=== PATIENT | male | born 1990 | race Hispanic/Latino ===

== ENCOUNTER 2019-06-30 05:27 | Emergency (ER) | payer OTHER ==
[2019-06-30] MEDS ORDERED: LIDOCAINE 5% TOPICAL PATCH TP ONE (05:59)
[2019-06-30] MEDS ORDERED: KETOROLAC TROMETHAMINE 60 MG/2 ML VIAL ONE (06:00)
[2019-06-30] MEDS ORDERED: ORPHENADRINE CITRATE 30 MG/ML ML ONE (07:33)
== END 2019-06-30 07:47 | disposition home or self-care (01) ==
LOC: EDH 05:27
DX: S16.1XXA Strain of muscle, fascia and tendon at neck level, initial encounter (principal); M54.6 Pain in thoracic spine; M62.830 Muscle spasm of back; W10.9XXA Fall (on) (from) unspecified stairs and steps, initial encounter; Y93.89 Activity, other specified; Y92.89 Other specified places as the place of occurrence of the external cause; Y99.8 Other external cause status
CPT/HCPCS: 72040; 96372 ×2; 99284; J1885; J2360